=== PATIENT | male | born 1945 | race Caucasian/White ===

== ENCOUNTER 2018-04-09 16:48 | Emergency (ER) | payer MEDICARE, BC ==
[~2018-04-09] VITALS: Ht 172.7 cm; Wt 117.3 kg
[~2018-04-09 16:48] MED LIST: ADULT LOW DOSE81 MG PO; ASPIRIN EC81 M1 PO; ATIVAN1 MG PO; AUGMENTIN 875-1 EACH PO; B12INJ IM; CARISOPRODOL 3350 MG PO; CELEXA10 MG PO; CELEXA40 MG PO; COLESTID1 GM PO; COLESTIPOL HCL1 G1 PO; DEPO-TESTO100 MG/1 M IM; DILAUDID 2 MG TA2 MG PO; FENTANYL 1100 MCG/HR TD; GLUCOPHAGE500 MG PO; HYDROCODON-ACE1 EAC5 PO; HYDROXYZINE HCL50 MG PO; INDOMETHACIN 5050 MG PO; LISINOPRIL20 MG PO; LOFIBRA160 MG PO; LORAZEPAM; LOVASTAT20 PO; LOVASTATIN 20 M20 MG PO; LYRICA 50 MG50 MG PO; METFORMIN HCL500 MG PO; OMEGA-31000 MG PO; OPIUM TINC10 MG/1 M1 PO; OXYCODONE HCL 55 MG PO; OXYCONTIN15 MG PO; PREDNISONE 20 M20 MG PO; PREDNISONE50 MG PO; PROZAC10 MG PO; PROZAC20 MG PO; SEROQUEL 25 MG25 M1 PO; TAMSULOSIN HCL0.4 MG PO; VALIUM5 MG PO; VICODIN ES TAB1 EACH PO; VISTARIL 25 MG25 M1 PO; VITAMIN D1000 UNI1 PO; VITAMIN D35000 UNI1 PO; WELLBUTRIN XL300 MG PO; ZPAK PO
[2018-04-09] MEDS ORDERED: LEXAPRO20 MG PO (17:12)
[2018-04-09 17:51] LABS: ABSOLUTE BASOPHILS 0.1 thou/uL (0.0-0.2); ABSOLUTE EOSINOPHILS 0.4 thou/uL (0.0-0.7); ABSOLUTE LYMPHOCYTES 1.9 thou/uL (0.8-5.3); ABSOLUTE MONOCYTES 0.5 thou/uL (0.0-1.2); ABSOLUTE NEUTROPHILS 5.3 thou/uL (1.6-8.1); EOSINOPHILS 4.7 %; HEMATOCRIT 39.6 % (42.0-52.0); LYMPHOCYTES 23.4 %; MCH 30.6 pg (26.0-34.0); MCHC 32.8 g/dL (28.0-37.0); MCV 93.1 fL (80.0-100.0); MONOCYTES 6.3 %; MPV 7.9 fl. (7.2-11.1); NUCLEATED RBCS 0 /100WBC; PLATELET COUNT* 186 thou/uL (150-400); POLYS 64.6 %; RBC 4.26 mil/uL (4.50-6.00); RDW-CV 14.6 % (10.5-14.5); WBC 8.2 thou/uL (4.0-11.0)
[2018-04-09 17:55] LABS: CALCIUM 8.3 mg/dL (8.5-10.1); CREATININE 1.1 mg/dL (0.6-1.3); POTASSIUM 3.1 mmol/L (3.5-5.1)
[2018-04-09 18:00] LABS: ALBUMIN 2.9 g/dL (3.4-5.0); TOTAL BILIRUBIN 0.6 mg/dL (<0.1-1.0); TOTAL PROTEIN 6.4 g/dL (6.4-8.2)
[2018-04-09] MEDS ORDERED: CLEOCIN HCL300 MG PO (18:46)
[2018-04-09] MEDS ORDERED: NYSTATIN15 G2 TOP (18:50)
[2018-04-09 19:07] VITALS: BP 148/77
== END 2018-04-09 19:07 | disposition home or self-care (01) ==
LOC: M.ERS 16:48
PROVIDERS: Nurse Practitioner Family
DX: L03.115 Cellulitis of right lower limb (principal); B37.2 Candidiasis of skin and nail; I10 Essential (primary) hypertension; K50.90 Crohn's disease, unspecified, without complications; E78.00 Pure hypercholesterolemia, unspecified; G47.30 Sleep apnea, unspecified; Z88.8 Allergy status to other drugs, medicaments and biological substances

== ENCOUNTER 2019-02-06 18:03 | Inpatient (IN) | payer MEDICARE, BC ==
[~2019-02-06] VITALS: Ht 175.3 cm; Wt 104.3 kg
[~2019-02-06 18:03] MED LIST changes: +CLEOCIN HCL300 MG PO; +LEXAPRO20 MG PO; +NYSTATIN15 G2 TOP
[2019-02-06 18:14] VITALS: BP 111/73
[2019-02-06] MEDS ORDERED: NORVASC5 MG PO (18:20)
[2019-02-06] MEDS ORDERED: B12INJ IM (18:20)
[2019-02-06] MEDS ORDERED: LEXAPRO20 MG PO (18:20)
[2019-02-06] MEDS ORDERED: CELEBREX 200 M200 M1 PO (18:20)
[2019-02-06] MEDS ORDERED: TRAZODONE HCL100 MG PO (18:21)
[2019-02-06] MEDS ORDERED: ACIDOPHILUS1 EAC3 PO (18:21)
[2019-02-06] MEDS ORDERED: LOVASTATIN 20 M20 MG PO (18:21)
[2019-02-06] MEDS ORDERED: GLUCOPHAGE XR500 MG PO (18:22)
[2019-02-06] MEDS ORDERED: OPIUM TINC10 MG/1 M1 PO (18:22)
[2019-02-06] MEDS ORDERED: BAZA CR.1 E1 TOP (18:22)
[2019-02-06] MEDS ORDERED: PERCOCET 10-321 EACH PO (18:23)
[2019-02-06] MEDS ORDERED: DEPO-TESTO200 MG/1 M IM (18:23)
[2019-02-06 18:34] LABS: ABSOLUTE BASOPHILS 0.1 thou/uL (0.0-0.2); ABSOLUTE EOSINOPHILS 0.2 thou/uL (0.0-0.7); ABSOLUTE MONOCYTES 0.4 thou/uL (0.0-1.2); BASOPHILS 1.2 %; HEMOGLOBIN 15.1 gm/dL (14.0-18.0); LYMPHOCYTES 46.4 %; MCH 31.8 pg (26.0-34.0); MCHC 33.4 g/dL (28.0-37.0); MCV 95.1 fL (80.0-100.0); MONOCYTES 4.5 %; MPV 7.2 fl. (7.2-11.1); NUCLEATED RBCS 0 /100WBC; PLATELET COUNT* 297 thou/uL (150-400); POLYS 45.9 %; RBC 4.73 mil/uL (4.50-6.00); RDW-CV 13.7 % (10.5-14.5); WBC 8.7 thou/uL (4.0-11.0)
[2019-02-06 18:52] LABS: ANION GAP 7 mmol/L (7-16); BUN 14 mg/dL (7-18); CALCIUM 8.7 mg/dL (8.5-10.1); CHLORIDE 103 mmol/L (98-107); CO2 34 mmol/L (21-32); CREATININE 1.4 mg/dL (0.6-1.3); GLUCOSE 158 mg/dL (70-99); POTASSIUM 3.3 mmol/L (3.5-5.1); SODIUM 144 mmol/L (136-145)
[2019-02-06 18:53] LABS: ALBUMIN 3.1 g/dL (3.4-5.0); ALKALINE PHOSPHATASE 56 U/L (46-116); SGOT 16 U/L (15-37); SGPT 21 U/L (30-65); TOTAL BILIRUBIN 0.3 mg/dL (<0.1-1.0); TOTAL PROTEIN 6.6 g/dL (6.4-8.2); TROPONIN-I LEVEL <0.06 ng/mL (<0.06)
[2019-02-06 20:29] LABS: BE 3.7 mmol/L (-2 to +3); PO2 85.2 mmHg (75.0-100.0); pH 7.341 (7.340-7.450)
[2019-02-06 20:32] LABS: PCO2 58.6 mmHg (35.0-45.0)
[2019-02-07] VITALS (7 sets, daily range): BP systolic 97–141; BP diastolic 57–70
[2019-02-08 08:30] VITALS: BP 145/67
[2019-02-08] MEDS ORDERED: PREDNISONE 10 M10 MG PO (11:39)
[2019-02-08 12:22] VITALS: BP 145/67
[2019-02-08 12:25] VITALS: BP 145/67
--- NOTE | 2019-02-09 16:41 | EKG ---
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: aLrs SPENCER : 1945 Requested By: Maribel He Order Number: [id number] MD: Raudel Mak Measurements Intervals [place] Rate: 83 P: 44 PA: 167 QRS: -98 QRSD: 154 T: 32 QT: 407 QTc: 479 Interpretive Statements Sinus rhythm Left atrial enlargement RBBB and LAFB Compared to ECG 08/16/2014 07:31:22 Atrial abnormality now present Left anterior fascicular block now present Right bundle-branch block now present Electronically Signed On 02-09-2019 16:41:23 CDT by Raudel Mak [email or web address] <ELECTRONICALLY SIGNED> By: Raudel Mak MD, FAC 02/09/19 1641 30 30 Raudel Mak MD, FAC /EPI
== END 2019-02-08 13:05 | disposition home or self-care (01) | DRG 915 ==
LOC: M.ERS 18:03 → M.TBA-ER 20:17 → M.ORTHSURG 02-07 14:39
PROVIDERS: Physician Assistant; ADMIT Internal Medicine
DX: T78.40XA Allergy, unspecified, initial encounter (principal); J80 Acute respiratory distress syndrome; K50.90 Crohn's disease, unspecified, without complications; E78.00 Pure hypercholesterolemia, unspecified; I10 Essential (primary) hypertension; R09.02 Hypoxemia; R23.8 Other skin changes; X58.XXXA Exposure to other specified factors, initial encounter; Z88.8 Allergy status to other drugs, medicaments and biological substances

== ENCOUNTER 2020-01-15 21:20 | Emergency (ER) | payer MEDICARE, BC ==
[~2020-01-15] VITALS: Ht 172.7 cm; Wt 124.7 kg
[~2020-01-15 21:20] MED LIST changes: +ACIDOPHILUS1 EAC3 PO; +BAZA CR.1 E1 TOP; +CELEBREX 200 M200 M1 PO; +DEPO-TESTO200 MG/1 M IM; +GLUCOPHAGE XR500 MG PO; +NORVASC5 MG PO; +PERCOCET 10-321 EACH PO; +PREDNISONE 10 M10 MG PO; +TRAZODONE HCL100 MG PO
[2020-01-15] MEDS ORDERED: PEPTIVA PO (21:41)
[2020-01-15 21:50] LABS: ABSOLUTE BASOPHILS 0.1 thou/uL (0.0-0.2); ABSOLUTE EOSINOPHILS 0.2 thou/uL (0.0-0.7); ABSOLUTE LYMPHOCYTES 1.3 thou/uL (0.8-5.3); ABSOLUTE NEUTROPHILS 10.6 thou/uL (1.6-8.1); BASOPHILS 0.7 %; EOSINOPHILS 1.3 %; HEMATOCRIT 40.4 % (42.0-52.0); HEMOGLOBIN 13.5 gm/dL (14.0-18.0); LYMPHOCYTES 10.3 %; MCH 30.5 pg (26.0-34.0); MCHC 33.5 g/dL (28.0-37.0); MCV 91.2 fL (80.0-100.0); MONOCYTES 7.4 %; MPV 8.1 fl. (7.2-11.1); NUCLEATED RBCS 0 /100WBC; PLATELET COUNT* 280 thou/uL (150-400); POLYS 80.3 %; RBC 4.43 mil/uL (4.50-6.00); RDW-CV 14.6 % (10.5-14.5); WBC 13.2 thou/uL (4.0-11.0)
[2020-01-15 21:56] LABS: CREATININE 1.4 mg/dL (0.6-1.3); POTASSIUM 4.3 mmol/L (3.5-5.1)
[2020-01-15 22:01] LABS: ALBUMIN 3.1 g/dL (3.4-5.0); MAGNESIUM 1.6 mg/dL (1.8-2.4); TOTAL BILIRUBIN 0.5 mg/dL (<0.1-1.0); TOTAL PROTEIN 7.4 g/dL (6.4-8.2)
[2020-01-15 22:58] LABS: URINE BILIRUBIN NEGATIVE (Negative); URINE BLOOD TRACE (Negative); URINE CLARITY CLEAR; URINE COLOR YELLOW; URINE GLUCOSE-RANDOM NEGATIVE (Negative); URINE KETONES TRACE (Negative); URINE LEUKOCYTES-REFLEX TRACE (Negative); URINE NITRITE-REFLEX NEGATIVE (Negative); URINE PROTEIN NEGATIVE (Negative); URINE SPECIFIC GRAVITY 1.025 (1.005-1.030); URINE UROBILINOGEN 0.2 E.U./dl (0.2-1.0)
[2020-01-15 23:05] LABS: CASTS None Seen /LPF (None Seen); SQUAMOUS NONE SEEN /LPF (0-3); URINE RBC 0-2 Rare /HPF (0-2); URINE WBC-REFLEX 6-15 Few /HPF (0-5)
[2020-01-15 23:06] LABS: BACTERIA-REFLEX 1-9 Few /HPF (None Seen); CRYSTALS None Seen /LPF (None Seen)
[2020-01-16 01:21] VITALS: BP 159/80
== END 2020-01-16 01:22 | disposition short-term general hospital (02) ==
LOC: M.ERS 21:20
PROVIDERS: Emergency Medicine
DX: N20.0 Calculus of kidney (principal); K50.90 Crohn's disease, unspecified, without complications; I10 Essential (primary) hypertension; E78.00 Pure hypercholesterolemia, unspecified; Z88.8 Allergy status to other drugs, medicaments and biological substances